=== PATIENT | female | born 1970 | race Caucasian/White ===

== ENCOUNTER 2021-01-01 15:09 | Emergency (ER) | payer SELFPAY ==
[~2021-01-01] VITALS: Ht 147.3 cm; Wt 90.2 kg
[~2021-01-01 15:09] MED LIST: CHLO25TA PO; INSU100I28 SQ-INSULIN; INSU100V5 SQ-INSULIN; LISI1TAB39 PO; LOSA25TA25 PO; METF500T17 PO; NIFE-7 PO
--- NOTE | 2021-01-01 15:59 | NUR ---
PT AMBULATED TO ROOM FROM TRIAGE. PT STATED THAT OVER THE PAST 3 WEEKS, SHE HAS HAD CHILLS, BODY ACHES AND STATED THAT HER "BRAIN FEELS LIKE JELLO." DAUGHTER STATED THAT ON WEDNESDAY, PT STARTED HALLUCINATING AND WAS SEEING ANIMAL IN THE HOUSE AND AT WORK THAT WERE NOT THERE. PT STATED THAT WHEN SHE CLOSES HER EYES SHE FEELS LIKE THE ROOM IS SPINNING. PT DENIES ANY FEVER, COUGH, SOB, CP, HEADACHE OR RECENT INFECTION.
--- NOTE | 2021-01-01 16:56 | NUR ---
PT OOB AMBULATE TO BATHROOM UPRIGHT STEADY GAIT. INSTRUCTED ON COLLECTION OF CLEAN CATCH URINE
[2021-01-01 16:59] LABS: MEAN CORPUSCULAR HGB CONC 34.3 g/dL (32.4-35.8); MEAN PLATELET VOLUME 10.2 fL (7.4-10.4); PLATELET COUNT 210 x10^3/uL (130-400); RED BLOOD COUNT 4.52 x10^6/uL (3.82-5.3); RED CELL DISTRIBUTION WIDTH 12.5 % (9.6-15.2)
[2021-01-01 17:00] VITALS: BP 139/70
[2021-01-01 17:08] LABS: ALBUMIN 3.5 g/dL (3.4-5.0); ANION GAP 8 mmol/L (5-15); CALCIUM 8.3 mg/dL (8.5-10.1); CHLORIDE 107 mmol/L (98-107)
[2021-01-01 17:09] LABS: SALICYLATE LEVEL < 1.7 mg/dL (2.8-20.0)
--- NOTE | 2021-01-01 17:10 | NUR ---
PT TO CT.
[2021-01-01 17:11] LABS: ALANINE AMINOTRANSFERASE 33 U/L (12-78); ALKALINE PHOSPHATASE 106 U/L (45-117); BILIRUBIN,TOTAL 0.6 mg/dL (0.2-1.0); CREATININE 0.38 mg/dL (0.55-1.02); TOTAL PROTEIN 7.3 g/dL (6.4-8.2)
[2021-01-01 17:35] LABS: AMPHETAMINE SCREEN, URINE Negative (Negative); BARBITURATE SCREEN, URINE Negative (Negative); BENZODIAZEPINE SCREEN, URINE Negative (Negative); CANNABINOID SCREEN, URINE Negative (Negative); COCAINE SCREEN, URINE Negative (Negative); METHADONE SCREEN, URINE Negative (Negative); OPIATE SCREEN, URINE Negative (Negative)
[2021-01-01 17:36] LABS: MD YES
[2021-01-01 17:40] LABS: EOS#(MANUAL) 0.17 x10^3/uL (0.0-0.4); EOS% (MANUAL) 2 % (1-7); LYMPH#(MANUAL) 3.92 x10^3/uL (1-3.4); LYMPHS% (MANUAL) 45 % (22-44); MONOS% (MANUAL) 8 % (2-9); SEG#(MANUAL) 3.92 x10^3/uL (1.8-6.8); SEGS% (MANUAL) 45 % (42-75)
[2021-01-01 17:42] LABS: <PLATELET ESTIMATE> ADEQUATE; <PLT MORPHOLOGY> NORMAL PLT MORPH
--- NOTE | 2021-01-01 17:59 | NUR ---
PT RESTING IN RNEY COMFORTABLY. CALL LIGHT WITHIN REACH
--- NOTE | 2021-01-01 18:49 | NUR ---
DISCHARGE INSTRUCTIONS REVIEWED WITH PT AND DAUGHTER. ALL QUESTIONS ANSWERED AT THIS TIME.
== END 2021-01-01 18:52 | disposition home or self-care (01) ==
LOC: ED 18:00
DX: M79.10 Myalgia, unspecified site (principal); E11.65 Type 2 diabetes mellitus with hyperglycemia; R44.1 Visual hallucinations; M54.2 Cervicalgia; I10 Essential (primary) hypertension
CPT/HCPCS: 36415; 70450; 80053; 80299; 80307; 80329; 82962; 85025; 99284; G0480

== ENCOUNTER 2021-01-24 13:16 | Emergency (ER) | payer SELFPAY ==
[~2021-01-24] VITALS: Ht 147.3 cm; Wt 87.5 kg
[2021-01-24 14:25] LABS: ALANINE AMINOTRANSFERASE 29 U/L (12-78); ALBUMIN 3.6 g/dL (3.4-5.0); ANION GAP 11 mmol/L (5-15); CHLORIDE 108 mmol/L (98-107)
[2021-01-24 14:26] LABS: BASOPHILS % (AUTO) 0 % (0-1); EOSINOPHILS % (AUTO) 1 % (1-7); LYMPHOCYTES % (AUTO) 46 % (22-44); MEAN CORPUSCULAR HEMOGLOBIN 29.2 pg (27.0-34.8); MEAN CORPUSCULAR HGB CONC 33.2 g/dL (32.4-35.8); MEAN PLATELET VOLUME 10.2 fL (7.4-10.4); MONOCYTES % (AUTO) 4 % (2-9); NEUTROPHILS % (AUTO) 48 % (42-75); PLATELET COUNT 213 x10^3/uL (130-400); RED BLOOD COUNT 4.78 x10^6/uL (3.82-5.3); RED CELL DISTRIBUTION WIDTH 13.1 % (9.6-15.2)
[2021-01-24 14:28] LABS: ALKALINE PHOSPHATASE 127 U/L (45-117); BILIRUBIN,TOTAL 0.6 mg/dL (0.2-1.0); TOTAL PROTEIN 7.6 g/dL (6.4-8.2)
--- NOTE | 2021-01-24 14:48 | NUR ---
PT TO MRI VIA [facility] AT THIS TIME.
--- NOTE | 2021-01-24 16:17 | NUR ---
PT VSS AND UPDATED IN EMR.
[2021-01-24 17:10] VITALS: BP 117/75
== END 2021-01-24 17:12 | disposition home or self-care (01) ==
LOC: ED 14:52
DX: E11.65 Type 2 diabetes mellitus with hyperglycemia (principal); E11.40 Type 2 diabetes mellitus with diabetic neuropathy, unspecified; R94.31 Abnormal electrocardiogram [ECG] [EKG]; G43.909 Migraine, unspecified, not intractable, without status migrainosus
CPT/HCPCS: 36415; 70551; 72141; 80053; 85025; 93005; 99285

== ENCOUNTER 2021-03-21 09:32 | Emergency (ER) | payer OTHER ==
[~2021-03-21] VITALS: Ht 144.8 cm; Wt 87.0 kg
--- NOTE | 2021-03-21 09:48 | NUR ---
manager print: EKG done in triage
--- NOTE | 2021-03-21 11:28 | NUR ---
counseling department chair note: Pt to room from lobby.
--- NOTE | 2021-03-21 11:37 | NUR ---
ERP at bedside. Pt in nad, swabbed for covid by ERP.
[2021-03-21] MEDS ORDERED: KETOROLAC 30 MG/1 ML ONE (11:56)
[2021-03-21] MEDS ORDERED: SODIUM CHLORIDE FLUSH 10ML SYR IVF ONE (12:00)
[2021-03-21] MEDS ORDERED: SODIUM CHLORIDE 0.9% 1,000ML IVBOLUS ONE (12:00)
[2021-03-21] MEDS ORDERED: CASIRIVIMAB 600 MG, IMDEVIMAB (REGN10987) 600 MG in SODIUM CHLORIDE 0.9% 250 ML IVPB ONE (12:00)
[2021-03-21] MEDS ORDERED: FILTER 0.22 MICRON IV ONE ×2 (12:00)
[2021-03-21] MEDS ORDERED: KETOROLAC 30 MG/1 ML IVPush ONE (12:00)
[2021-03-21 12:04] LABS: BASOPHILS % (AUTO) 1 % (0-1); EOSINOPHILS % (AUTO) 3 % (1-7); LYMPHOCYTES % (AUTO) 34 % (22-44); MEAN CORPUSCULAR HEMOGLOBIN 29.2 pg (27.0-34.8); MEAN CORPUSCULAR HGB CONC 33.1 g/dL (32.4-35.8); MEAN PLATELET VOLUME 9.2 fL (7.4-10.4); MONOCYTES % (AUTO) 9 % (2-9); NEUTROPHILS % (AUTO) 54 % (42-75); PLATELET COUNT 213 x10^3/uL (130-400); RED CELL DISTRIBUTION WIDTH 13.8 % (9.6-15.2)
--- NOTE | 2021-03-21 12:19 | NUR ---
Pt on phone in room and watching tv. Is in NO acute distress. IVF infused. Waiting for IV med from pharm. Call powell in reach.
[2021-03-21 12:31] LABS: ANION GAP 6 mmol/L (5-15); CHLORIDE 107 mmol/L (98-107)
--- NOTE | 2021-03-21 12:32 | NUR ---
Pt consents verbally to antiviral medication, dr ryo also spoke with patient. On cont pulse ox, b/p. Call powell in reach admin with 0.22 micron filter.
--- NOTE | 2021-03-21 12:47 | NUR ---
No s/s rxn from infusion.
--- NOTE | 2021-03-21 13:25 | NUR ---
Break RN note: Pt resting in bed, eyes closed, resp even and unlabored, NADN.
[2021-03-21 15:04] VITALS: BP 125/71
== END 2021-03-21 15:08 | disposition home or self-care (01) ==
LOC: ED 14:05
DX: B34.9 Viral infection, unspecified (principal); Z20.822 Contact with and (suspected) exposure to COVID-19; R94.31 Abnormal electrocardiogram [ECG] [EKG]; I10 Essential (primary) hypertension; E11.9 Type 2 diabetes mellitus without complications
CPT/HCPCS: 36415; 71045; 80048; 85025; 93005; 96361; 96374; 99285; J1885; J7030; J7050; M0243; U0003; U0005; 96365; 96375